=== PATIENT | male | born 1980 | race Two or more races ===

== ENCOUNTER 2020-09-20 14:08 | Emergency (ER) | payer SELFPAY ==
[~2020-09-20] VITALS: Ht 182.9 cm; Wt 72.7 kg
--- NOTE | 2020-09-20 14:36 | PHYS DOC ---
Past History Past Medical History: No Pertinent History (LUIS MONTILLA APRN) Past Surgical History: No Surgical History (LUIS MONTILLA APRN) Alcohol Use: Rarely (LUIS MONTILLA APRN) Adult General Chief Complaint Chief Complaint: ABDOMINAL PAIN HPI HPI Patient is a 40 year old male who presents with complaints of right lower groin pain after lifting heavy objects at home at approximately 1320 today. Patient reports he felt a sharp sudden onset of pain in his right lower groin area that he rates his pain a 10/10 1-10 pain scale. Patient states he did urinate without problems today and did not notice any blood in his urine. Patient denies pain in his testicles, denies swelling of his testicles. Patient denies any chest pains, abdominal pains, constipation, nausea, vomiting, shortness of breath, urinary problems, back pain, pain in his joints, skin rashes, headaches, increased urination or increased thirst. Patient denies any swelling of his glands. Patient denies any recent depressions or anxieties, patient denies homicidal or suicidal ideations. Patient denies COVID-19 symptoms and does not wish to be tested today for the COVID-19 virus. Patient states that he is from [place] and has been visiting family here and is scheduled to return to [place] in about 2 weeks. (LUIS MONTILLA APRN) Review of Systems Review of Systems Constitutional: Denies fever or chills Eyes: Denies change in visual acuity, redness, or eye pain HENT: Denies nasal congestion or sore throat Respiratory: Denies cough or shortness of breath Cardiovascular: Denies chest pains, denies chest palpitation GI: Denies abdominal pain, nausea, vomiting, constipation or diarrhea : Denies dysuria or hematuria, complains of sudden onset of right lower groin pain. Musculoskeletal: Denies back pain or joint pain Integument: Denies rash or skin lesions Neurologic: Denies headache, focal weakness or sensory changes Endocrine: Denies polyuria or polydipsia All other systems were reviewed and found to be within normal limits, except as documented in this note. (LUIS MONTILLA APRN) Current Medications Current Medications Patient states he has not on any prescription medications. (LUIS MONTILLA APRN) Allergies Allergies Patient denies allergies to medications, denies seasonal allergies, denies food allergies. (LUIS MONTILLA APRN) Physical Exam Physical Exam Constitutional: Well developed, well nourished, no acute distress, non-toxic appearance. HENT: Normocephalic, atraumatic, bilateral external ears normal, oropharynx moist, no oral exudates, nose normal. Eyes: PERRLA, EOMI, conjunctiva normal, no discharge. Neck: Normal range of motion, no tenderness, supple, no stridor. Cardiovascular:Heart rate regular rhythm, no murmur Lungs & Thorax: Bilateral breath sounds clear to auscultation Abdomen: Bowel sounds normal, soft, no tenderness, no masses, no pulsatile masses. Skin: Warm, dry, no erythema, no rash. Back: No tenderness, no CVA tenderness. Extremities: No tenderness, no cyanosis, no clubbing, ROM intact, no edema. Neurologic: Alert and oriented X 3, normal motor function, normal sensory function, no focal deficits noted. Psychologic: Affect normal, judgement normal, mood normal. : Patient has a protrusion near the right inguinal area, concerning for inguinal hernia, easily reduced with palpation, patient reported relief of pain from a 10/10 down to a 6/10 pain after manual reduction, no testicular swelling, no testicular pain, no abnormalities felt in the scrotum, no lesions noted. (LUIS MONTILLA APRN) Current Patient Data Vital Signs Vital Signs Date Time Temp Pulse Resp B/P (MAP) Pulse Ox O2 Delivery O2 Flow Rate FiO2 09/20/20 14:18 97.9 89 16 152/88 (109) 100 Room Air Lab Results Laboratory Tests Test 09/20/20 14:52 White Blood Count 7.2 x10^3/uL Red Blood Count 5.31 x10^6/uL Hemoglobin 14.1 g/dL Hematocrit 43.3 % Mean Corpuscular Volume 82 fL Mean Corpuscular Hemoglobin 27 pg Mean Corpuscular Hemoglobin Concent 33 g/dL Red Cell Distribution Width 13.4 % Platelet Count 277 x10^3/uL Neutrophils (%) (Auto) 66 % Lymphocytes (%) (Auto) 25 % Monocytes (%) (Auto) 8 % Eosinophils (%) (Auto) 1 % Basophils (%) (Auto) 1 % Neutrophils # (Auto) 4.7 x10^3uL Lymphocytes # (Auto) 1.8 x10^3/uL Monocytes # (Auto) 0.6 x10^3/uL Eosinophils # (Auto) 0.1 x10^3/uL Basophils # (Auto) 0.0 x10^3/uL Sodium Level 132 mmol/L Potassium Level 3.3 mmol/L Chloride Level 98 mmol/L Carbon Dioxide Level 25 mmol/L Anion Gap 9 Blood Urea Nitrogen 13 mg/dL Creatinine 1.0 mg/dL Estimated GFR (Cockcroft-Gault) 81.9 BUN/Creatinine Ratio 13 Glucose Level 79 mg/dL Lactic Acid Level 1.6 mmol/L Calcium Level 8.4 mg/dL Total Bilirubin 1.6 mg/dL Aspartate Amino Transf (AST/SGOT) 26 U/L Alanine Aminotransferase (ALT/SGPT) 28 U/L Alkaline Phosphatase 55 U/L Total Protein 7.0 g/dL Albumin 3.8 g/dL Albumin/Globulin Ratio 1.2 Current Medications Medications (Trade) Dose Ordered Sig/Buster Route PRN Reason Start Time Stop Time Status Last Admin Dose Admin Sodium Chloride 1,000 ml @ 1,000 mls/hr 1X ONCE IV 09/20/20 14:45 09/20/20 15:44 DC 09/20/20 14:45 Fentanyl Citrate (Fentanyl 2ml Vial) 50 mcg 1X ONCE IVP 09/20/20 14:45 09/20/20 14:56 DC 09/20/20 14:45 Iohexol (Omnipaque 300 Mg/ml) 75 ml 1X ONCE IV 09/20/20 15:00 09/20/20 15:01 DC 09/20/20 15:09 Info (Do NOT chart on this entry -- for MONITORING) 1 each PRN DAILY PRN MC SEE COMMENTS 09/20/20 15:00 09/22/20 14:59 Fentanyl Citrate (Fentanyl 2ml Vial) 100 mcg STK-MED ONCE .ROUTE 09/20/20 14:56 09/20/20 14:56 DC Potassium Chloride (Klor-Con) 40 meq 1X ONCE PO 09/20/20 15:45 09/20/20 15:49 DC (LUIS MONTILLA APRN) EKG EKG [] (LUIS MONTILLA APRN) Radiology/Procedures Radiology/Procedures REASON: CONCERN FOR INGUINAL HERNIA R/O STRANGULATION, INGUINAL PAIN RT PROCEDURE: CT ABD PELV W/ IV CONTRST ONLY PQRS Compliance Statement: One or more of the following individualized dose reduction techniques were utilized for this examination: 1. Automated exposure control 2. Adjustment of the mA and/or kV according to patient size 3. Use of iterative reconstruction technique CT abdomen/pelvis with contrast 09/20/2020 2:36 PM INDICATION: Inguinal hernia with right inguinal pain COMPARISON: None available TECHNIQUE: Multiple axial CT images of the abdomen and pelvis were obtained after the intravenous administration of Isovue-370. Coronal and sagittal reformats are provided. FINDINGS: Lungs are clear. Heart size within normal limits. There is a 4 mm hypodensity in the right hepatic dome which is too small characterize, statistically favored represent a simple cyst or hemangioma in the absence of underlying malignancy. Spleen, bilateral adrenal glands and pancreas are normal in appearance. Gallbladder is present without adjacent inflammation. Kidneys are symmetric enhancement. No suspicious renal mass or hydronephrosis. Simple cyst identified in the lateral interpolar right kidney measuring 2.2 cm. Urinary bladder is within normal limits given degree of distention. Prostate and seminal vesicles appear normal. Normal appendix is visualized. No periappendiceal inflammatory changes are identified. There is a small right inguinal hernia containing a loop of small bowel. No definite associated bowel obstruction or strangulation. No suspicious osseous abnormality is identified. IMPRESSION: There is a very small right inguinal hernia containing nondilated loop of small bowel. No findings to suggest strangulation or associated bowel obstruction. Electronically signed by: Neno Aguero MD (09/20/2020 3:24 PM) [facility] DICTATED AND SIGNED BY: NENO AGUERO MD DATE: 09/20/20 1524 CC: LUIS MONTILLA APRN; EDSJH; PCP,NO ~MTH0 0 (LUIS MONTILLA APRN) Heart Score Risk Factors: Risk Factors: DM, Current or recent (<one month) smoker, HTN, HLP, family history of CAD, obesity. Risk Scores: Risk Factors: DM, Current or recent (<one month) smoker, HTN, HLP, family history of CAD, obesity. (LUIS MONTILLA APRN) Course & Med Decision Making Course & Med Decision Making Pertinent Labs and Imaging studies reviewed. (See chart for details) 40-year-old male vital signs stable presents emergency department with sudden onset of right lower groin pain. Patient rated his pain at a 10/10 upon initial exam, physical exam was concerning for inguinal hernia, inguinal mass was e asily reduced was elicited pain scale from 10/10 down to a 6/10. Normal testicular exam, patient did not complain of pain in his testicles, this is not suggestive of a complete inguinal hernia. Patient states that he urinated clear yellow urine and did not notice any blood prior to arrival. Patient did not have any problems urinating. ER work-up consisted of labs, CT abdomen pelvis with contrast, and UA. IV pain medication [address] was read by house radiologist as small inguinal hernia none strangulated without bowel obstruction. Upon reexamination of the patient patient states he is now pain-free, hernia remains reduced at this time. UA pending. Urine results equivocal, patient's serum potassium was slightly low, patient was subsequently given 40 mEq of p.o. potassium prior to discharge, patient's sodium was slightly low at 132, patient given 1 L of normal saline prior to discharge, diagnosis of inguinal hernia reviewed with patient, need for follow- up with primary care doctor and surgeon soon, patient states he is returning back home to [place] within a couple of weeks where he will follow-up with his primary doctor and see a surgeon to get his hernia repaired. Patient's discharge instructions and discharge was performed by by ED attending Dr. Sullivan. Related to patient presentation and supportive radiological studies, this is unlikely a testicular torsion, epididymitis, hydrocele, varicocele, spermatocele, epididymal cyst, or testicular tumor. (LUIS MONTILLA APRN) Dragon Disclaimer Dragon Disclaimer This electronic medical record was generated, in whole or in part, using a voice recognition dictation system. (LUIS MONTILLA APRN) Departure Departure: Impression: Primary Impression: Right inguinal hernia Disposition: 01 DC HOME SELF CARE/HOMELESS Condition: STABLE Referrals: PCP,NO (PCP) MONTSERRAT CHAPA MD Patient Instructions: Inguinal Hernia, Adult Additional Instructions: Please return the emergency department medially should you develop symptoms including but not limited to severe abdominal pain, fevers, vomiting, lack of bowel movement, overlying skin changes to the area, nonreducible mass. Follow- up with primary care physician in the next 2 to 3 days. Scripts Ondansetron Hcl (ZOFRAN) 4 Mg Tablet 4 MG PO TID PRN PRN for NAUSEA, #9 TAB Prov: SUMA SULLIVAN DO 09/20/20 Ibuprofen (IBUPROFEN) 200 Mg Tablet 600 MG PO QIDPRN PRN for PAIN, #15 TAB Prov: SUMA SULLIVAN DO 09/20/20 Attending Co-Sign Attending Co-Sign I have reviewed the non-physician practitioner's documentation, personally taken the patient's history, performed an exam and agree with the physical findings, clinical impression, and management plan. (SUMA SULLIVAN DO) Attending Co-Sign The patient was seen and interviewed as well as examined at the bedside. The chart was reviewed. The case was discussed. Agree with the plan of care. (LUIS MONTILLA APRN) LUIS MONTILLA APRN Sep 20, 2020 14:36 SUMA SULLIVAN DO Sep 20, 2020 16:54
[2020-09-20] MEDS ORDERED: IV NORMAL SALINE 1,000ML 1,000 ML IV ONE (14:45)
[2020-09-20] MEDS ORDERED: CONTRAST GIVEN. MC PRN (15:00)
[2020-09-20] MEDS ORDERED: IOHEXOL 300 MG/ML 75 ML VIAL. IV ONE (15:00)
[2020-09-20 15:17] LABS: BASO % 1 % (0-3); EOS # 0.1 x10^3/uL (0.0-0.7); EOS % 1 % (0-3); HEMATOCRIT 43.3 % (39.0-53.0); HEMOGLOBIN 14.1 g/dL (13.0-17.5); LYMPH # 1.8 x10^3/uL (1.0-4.8); LYMPH % 25 % (24-48); MEAN CORPUSCULAR HEMOGLOBIN 27 pg (25-35); MEAN CORPUSCULAR HGB CONC 33 g/dL (31-37); MEAN CORPUSCULAR VOLUME 82 fL (79-100); MONO # 0.6 x10^3/uL (0.0-1.1); MONO % 8 % (0-9); NEUT # 4.7 x10^3uL (1.8-7.7); NEUT % 66 % (31-73); PLATELET COUNT 277 x10^3/uL (140-400); RED BLOOD COUNT 5.31 x10^6/uL (4.30-5.70); RED CELL DISTRIBUTION WIDTH 13.4 % (11.5-14.5); WHITE BLOOD COUNT 7.2 x10^3/uL (4.0-11.0)
[2020-09-20 15:27] LABS: CALCIUM 8.4 mg/dL (8.5-10.1); GFR 81.9; POTASSIUM 3.3 mmol/L (3.5-5.1)
--- NOTE | 2020-09-20 15:27 | RAD ---
PQRS Compliance Statement: One or more of the following individualized dose reduction techniques were utilized for this examination: 1. Automated exposure control 2. Adjustment of the mA and/or kV according to patient size 3. Use of iterative reconstruction technique CT abdomen/pelvis with contrast 09/20/2020 2:36 PM INDICATION: Inguinal hernia with right inguinal pain COMPARISON: None available TECHNIQUE: Multiple axial CT images of the abdomen and pelvis were obtained after the intravenous administration of Isovue-370. Coronal and sagittal reformats are provided. FINDINGS: Lungs are clear. Heart size within normal limits. There is a 4 mm hypodensity in the right hepatic dome which is too small characterize, statistically favored represent a simple cyst or hemangioma in the absence of underlying malignancy. Spleen, bilateral adrenal glands and pancreas are normal in appearance. Gallbladder is present without adjacent inflammation. Kidneys are symmetric enhancement. No suspicious renal mass or hydronephrosis. Simple cyst identified in the lateral interpolar right kidney measuring 2.2 cm. Urinary bladder is within normal limits given degree of distention. Prostate and seminal vesicles appear normal. Normal appendix is visualized. No periappendiceal inflammatory changes are identified. There is a small right inguinal hernia containing a loop of small bowel. No definite associated bowel obstruction or strangulation. No suspicious osseous abnormality is identified. IMPRESSION: There is a very small right inguinal hernia containing nondilated loop of small bowel. No findings to suggest strangulation or associated bowel obstruction. Electronically signed by: Basia Squires MD (09/20/2020 3:24 PM) [facility]
[2020-09-20 15:34] LABS: ALBUMIN 3.8 g/dL (3.4-5.0); ALBUMIN/GLOBULIN RATIO 1.2 (1.0-1.7); TOTAL BILIRUBIN 1.6 mg/dL (0.2-1.0)
[2020-09-20] MEDS ORDERED: POTASSIUM CHLORIDE 20 MEQ TABLET.ER. PO ONE (15:45)
[2020-09-20 16:47] LABS: BILIRUBIN,URINE NEG (NEG); CLARITY,URINE CLEAR; COLOR,URINE YELLOW; GLUCOSE,URINE NEG (NEG)
[2020-09-20 16:48] LABS: BACTERIA,URINE 0 /HPF (0-FEW); NITRITE,URINE NEG (NEG); SQUAMOUS EPITHELIAL CELL,UR OCC /LPF; UROBILINOGEN,URINE 0.2 mg/dL (0.2 mg/dL); WBC,URINE 0 /HPF (0-4)
[2020-09-20 16:51] VITALS: BP 134/65
[2020-09-20] MEDS ORDERED: IBUP-1673 PO (16:54)
[2020-09-20] MEDS ORDERED: ONDA4TAB7 PO (16:54)
== END 2020-09-20 17:00 | disposition home or self-care (01) ==
LOC: ER 14:08
DX: K40.90 Unilateral inguinal hernia, without obstruction or gangrene, not specified as recurrent (principal); R10.31 Right lower quadrant pain
CPT/HCPCS: 36415; 74177; 80053; 81001; 83605; 85025; 96361; 96374; 99285; J3010; J7030; Q9967